=== PATIENT | female | born 1985 | race Caucasian/White ===

== ENCOUNTER 2019-03-03 18:40 | Inpatient (IN) | payer OTHER, SELFPAY ==
[~2019-03-03 18:40] MED LIST: ISOVUE-370 76%-LOCM 1 ML ONE
[2019-03-03] MEDS ORDERED: Adacel (T-DAP) 0.5 ML SYRINGE ONE (18:41)
[2019-03-03] MEDS ORDERED: Fentanyl 100 MCG/2 ML VIAL ONE ×2 (18:41→23:03)
[2019-03-03] MEDS ORDERED: CEFAZOLIN 1 GM VIAL ONE ×2 (18:48→18:49)
[2019-03-03 19:23] LABS: INR-International Normal Ratio 0.8; Prothrombin Time 10.6 SEC (12.0-14.7)
[2019-03-03 19:24] LABS: PTT 17.9 SEC (22.9-36.1)
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
[2019-03-03 19:27] LABS: BHCG - Serum Negative (NEGATIVE); Pregs Control Background? CLEAR/WHITE (CLR/WHITE); Pregs Control Bar Appear? YES (CONTROL BAR)
[2019-03-03 19:32] LABS: ALT (SGPT) 29 U/L (8-55); AST (SGOT) 46 U/L (5-34); Albumin 3.7 g/dL (3.5-5.0); Alkaline Phosphatase 47 U/L (40-150); Anion Gap 12 mmol/L (10-20); BUN (Urea Nitrogen) 11 mg/dL (7.0-18.7); Bilirubin, Total 0.5 mg/dL (0.2-1.2); Calc. Creatinine Clearance 0 mL/min (70-130); Calcium 8.4 mg/dL (7.8-10.44); Carbon Dioxide 22 mmol/L (22-29); Chloride 109 mmol/L (98-107); Estimated GFR-MDRD 82; Globulin 2.4 g/dL (2.4-3.5); Glucose 83 mg/dL (70-105); Potassium 3.3 mmol/L (3.5-5.1); Protein, Total 6.1 g/dL (6.0-8.3); Sodium 140 mmol/L (136-145)
[2019-03-03] MEDS ORDERED: Morphine 4 MG/ML VIAL ONE (19:51)
[2019-03-03] MEDS ORDERED: Ondansetron PF 4 MG/2 ML Vial ONE (19:51)
[2019-03-03 19:56] LABS: #Basophils 0.1 thou/uL (0.0-0.2); #Eosinphils 0.1 thou/uL (0.0-0.7); #Lymphocytes 1.3 thou/uL (1.20-3.40); #Monocytes 0.7 thou/uL (0.11-0.59); #Neutrophils 8.4 thou/uL (1.40-6.50); %Basophils 0.5 % (0.0-1.0); %Eosinophils 0.6 % (0.0-10.0); %Lymphocytes 12.6 % (21.0-51.0); %Monocytes 6.3 % (0.0-10.0); Hemoglobin 11.2 g/dL (12.0-16.0); Mean Corpuscular Hemoglobin 30.4 pg (27.0-31.0); Mean Corpuscular Volume 92.2 fL (78.0-98.0); Mean Platelet Volume 6.7 fL (7.4-10.4); Platelet Count 216 thou/uL (130-400); RBC Distribution Width 11.9 % (11.5-14.5); Red Blood Cell (RBC) Count 3.69 mill/uL (4.20-5.40); White Blood Cell (WBC) Count 10.5 thou/uL (4.8-10.8)
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
--- NOTE | 2019-03-03 21:16 | CT ---
CT CHEST WITH IV CONTRAST: CT ABDOMEN WITH IV CONTRAST: CT PELVIS WITH IV CONTRAST: CORONAL AND SAGITTAL REFORMATIONS OF THE THORACOLUMBAR SPINE: FINDINGS: No evidence of mediastinal hematoma or intimal flap in the aorta is seen to suggest aortic transectio n. No pleural or pericardial effusions are seen. No pneumothoraces are identified. There are patch y infiltrates in the posterior aspect of the left lung base, likely due to pulmonary contusions. The liver, spleen, pancreas, adrenal glands, and kidneys are intact. The gallbladder is intact. No free air or free fluid is seen in the abdomen or pelvis. Uterus is present with an IUD. No fracture or subluxation is seen in the thoracolumbar spine. There are comminuted fractures involv ing the left sacral alae. There are also fractures involving the anterior column of the left acetabu lum and the left inferior pubic ramus. IMPRESSION: 1. Left-sided pulmonary contusions. 2. Pelvic fractures. 3. No CT evidence of solid organ injury. Discussed over the telephone with ER physician, Dr. Marina Ramon, at 8:16 p.m. CODE BELLA POS: [facility]
[2019-03-03] MEDS ORDERED: Lidocaine 1% w/Epinephrine 1:100K 20 ML VIAL ONE (21:24)
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
[2019-03-03] MEDS ORDERED: Ketamine 50 MG/ML (10ML VIAL) ONE (22:17)
[2019-03-03] MEDS ORDERED: Bacitracin 1 PK ONE (22:34)
[2019-03-03] MEDS ORDERED: Dextrose 5% in Water 1,000 ML IV PRN (22:48)
[2019-03-03] MEDS ORDERED: Promethazine HCl 25 MG/ML VIAL IM PRN (22:48)
[2019-03-03] MEDS ORDERED: Morphine 4 MG/ML VIAL SLOW IVP PRN (22:48)
[2019-03-03] MEDS ORDERED: hydrALAZINE 20 MG/ML VIAL SLOW IVP PRN (22:48)
[2019-03-03] MEDS ORDERED: Dextrose 50% Abboject 50 ML SYRINGE SLOW IVP PRN (22:48)
[2019-03-03] MEDS ORDERED: traMADol HCl 50 MG TAB PO PRN ×2 (22:53)
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
[2019-03-03] MEDS ORDERED: Potassium Chloride 20 MEQ in Premix Bag 1 BAG IVPB SCH (23:59)
--- NOTE | 2019-03-04 00:02 | RAD ---
RIGHT HAND THREE VIEWS: HISTORY: Injury. Right hand pain. FINDINGS: No acute fracture or dislocation is identified. POS: [facility]
--- NOTE | 2019-03-04 00:02 | RAD ---
LEFT FOREARM TWO VIEWS: HISTORY: Post reduction, distal radial and ulnar fractures. COMPARISON: Exam done at 8:29 p.m. on the same day. FINDINGS: Interval reduction of the distal radial fracture is seen since the earlier exam. A cast has been jessica christine. The fracture of the ulnar styloid is unchanged. POS: [facility]
[2019-03-04] MEDS ORDERED: Morphine 4 MG/ML VIAL ONE (00:29)
[2019-03-04 00:56] LABS: Lactic Acid 3.2 mmol/L (0.5-2.2)
[2019-03-04 02:11] LABS: Amphetamine Not Detected (NotDetected); Benzodiazepine Screen Not Detected (NotDetected); Cocaine Metabolite Screen Detected (NotDetected); Medtox Reader # READER 4; Methadone Not Detected (NotDetected); Methamphetamine Detected (NotDetected); Opiate Screen Detected (NotDetected); Phencyclidine (PCP) Not Detected (NotDetected); THC/Cannabinoid Screen Not Detected (NotDetected); Tricyclic Screen Not Detected (NotDetected)
[2019-03-04 02:12] LABS: Barbiturates Screen Not Detected (NotDetected); Medtox Control Line Valid? VALID (VALID); Oxycodone Screen Not Detected (NotDetected)
[2019-03-04 02:42] VITALS: BMI 27.8
[2019-03-04] MEDS: Morphine 4 MG/ML VIAL SLOW IVP PRN ×2 (02:48→12:12)
[2019-03-04] MEDS: Acetaminophen 1,000 MG in Premix Bag 1 BAG IVPB SCH ×4 (02:48→17:52)
[2019-03-04] MEDS: Sodium Chloride 0.9% 1,000 ML IV SCH ×3 (02:50→21:04)
[2019-03-04] MEDS: Ibuprofen 800 MG TAB PO SCH ×3 (02:57→15:51)
[2019-03-04 05:32] LABS: #Lymphocytes 1.4 thou/uL (1.20-3.40); #Monocytes 1.1 thou/uL (0.11-0.59); #Neutrophils 7.4 thou/uL (1.40-6.50); %Basophils 0.1 % (0.0-1.0); %Eosinophils 0.2 % (0.0-10.0); %Lymphocytes 13.9 % (21.0-51.0); %Monocytes 10.8 % (0.0-10.0); %Neutrophils 75.1 % (42.0-75.0); Hemoglobin 10.7 g/dL (12.0-16.0); Mean Corpuscular HGB CONC 33.6 g/dL (32.0-36.0); Mean Corpuscular Hemoglobin 31.3 pg (27.0-31.0); Mean Platelet Volume 6.8 fL (7.4-10.4); Platelet Count 231 thou/uL (130-400); RBC Distribution Width 11.8 % (11.5-14.5); Red Blood Cell (RBC) Count 3.43 mill/uL (4.20-5.40); White Blood Cell (WBC) Count 9.8 thou/uL (4.8-10.8)
[2019-03-04 05:48] LABS: Anion Gap 12 mmol/L (10-20); BUN (Urea Nitrogen) 11 mg/dL (7.0-18.7); Calc. Creatinine Clearance 124 mL/min (70-130); Calcium 8.2 mg/dL (7.8-10.44); Carbon Dioxide 22 mmol/L (22-29); Chloride 107 mmol/L (98-107); Estimated GFR-MDRD 78; Glucose 131 mg/dL (70-105); Magnesium 1.7 mg/dL (1.6-2.6); Phosphorus 3.4 mg/dL (2.3-4.7); Potassium 4.3 mmol/L (3.5-5.1); Sodium 137 mmol/L (136-145)
[2019-03-04] MEDS ORDERED: CEFAZOLIN 2 GM in Premix Bag 1 BAG IVPB SCH (08:30)
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
[2019-03-04] MEDS: Famotidine 20 MG TAB PO SCH ×2 (09:12→21:04)
[2019-03-04] MEDS: Polyethylene Glycol 3350 17 GM Packet PO SCH (09:13)
[2019-03-04] MEDS: Senokot S 8.6-50 MG TAB PO SCH ×2 (09:13→21:04)
[2019-03-04] MEDS: Silver Sulfadiazine 1% Cream 50 GM TUBE TP SCH ×2 (09:16→21:05)
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
--- NOTE | 2019-03-04 10:59 | RAD ---
RADIOGRAPH CHEST 1 VIEW: DATE: 03/04/2019 HISTORY: Central line placement. FINDINGS: The visualized lung reyes are clear. The cardiomediastinal silhouette and hilar shadows are normal. The lateral costophrenic angles are sharp. The osseous structures appear normal. There is no pneumothorax. Left subclavian central line with distal tip overlying SVC/right atrial junction. IMPRESSION: 1. Left subclavian central vascular catheter without pneumothorax. 2. Otherwise normal.
[2019-03-04] MEDS: Ondansetron PF 4 MG/2 ML Vial IVP PRN (12:13)
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
[2019-03-04] MEDS ORDERED: Fentanyl 100 MCG/2 ML VIAL ONE ×4 (12:55→16:31)
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
[2019-03-04] MEDS ORDERED: Lidocaine 1% (PF) 30 ML VIAL ONE (13:00)
[2019-03-04] MEDS ORDERED: Midazolam HCl 2 mg/2 ml Vial ONE (13:00)
[2019-03-04] MEDS ORDERED: Bupivacaine HCl 0.5%/Epinephrine 1:200,000/PF 30 ml Vial ONE (13:55)
[2019-03-04] MEDS ORDERED: Rocuronium Bromide 10 MG/ML (10ML VIAL) ONE (13:56)
[2019-03-04] MEDS ORDERED: Glycopyrrolate 0.2 MG/ML 5 ML SYRINGE ONE (13:56)
[2019-03-04] MEDS ORDERED: PROPOFOL 200 MG/20 ML VIAL ONE (13:56)
[2019-03-04] MEDS ORDERED: Dexamethasone 20 MG/5 ML VIAL ONE (13:56)
[2019-03-04] MEDS ORDERED: Ketorolac Tromethamine 30 MG/ML VIAL ONE (13:56)
[2019-03-04] MEDS ORDERED: Ondansetron PF 4 MG/2 ML Vial ONE (13:56)
[2019-03-04] MEDS ORDERED: Ondansetron HCl/PF 4 MG/2 ML Vial IVP PRN (16:47)
[2019-03-04] MEDS ORDERED: Promethazine HCl 25 MG/ML VIAL SLOW IVP PRN (16:47)
[2019-03-04] MEDS ORDERED: diphenhydrAMINE 50 MG/ML VIAL IVP PRN (16:47)
[2019-03-04] MEDS ORDERED: Naloxone HCl 0.4 mg/ml Vial IV PRN (16:47)
[2019-03-04] MEDS ORDERED: Zolpidem Tartrate 5 MG TAB PO PRN (16:47)
[2019-03-04] MEDS ORDERED: diphenhydrAMINE 50 MG/ML VIAL IM PRN (16:47)
[2019-03-04] MEDS ORDERED: fentaNYL Citrate/PF 2,000 MCG in Sodium Chloride 0.9% 60 ML IV PRN (16:47)
[2019-03-04] MEDS ORDERED: diphenhydrAMINE 25 MG CAP PO PRN (16:47)
[2019-03-04] MEDS ORDERED: Promethazine HCl 25 MG/ML VIAL IM PRN ×2 (16:47)
[2019-03-04] MEDS ORDERED: Ondansetron PF 4 MG/2 ML Vial IVP PRN (16:47)
[2019-03-04] MEDS ORDERED: Morphine 4 MG/ML VIAL SLOW IVP PRN (16:55)
[2019-03-04] MEDS ORDERED: Communication Order-Pharmacy FS SCH (17:00)
--- NOTE | 2019-03-04 18:20 | RAD ---
LEFT WRIST THREE VIEWS: 03/04/19 HISTORY: Distal radial and ulnar fractures. FINDINGS/IMPRESSION: Spot fluoroscopic images of the wrist demonstrate interval reduction and internal fixation of the dis cinthya radial fractures since the previous day's exam. Ulnar styloid fracture is unchanged. POS: [facility]
[2019-03-04] MEDS: Cyclobenzaprine 10 MG TAB PO PRN (21:04)
[2019-03-04] MEDS: CEFAZOLIN 2 GM in Premix Bag 1 BAG IVPB SCH (21:05)
[2019-03-04] MEDS: traMADol HCl 50 MG TAB PO PRN (22:10)
[2019-03-05] MEDS: Ibuprofen 800 MG TAB PO SCH ×3 (00:28→13:40)
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
[2019-03-05] MEDS: Sodium Chloride 0.9% 1,000 ML IV SCH ×2 (04:24→17:41)
[2019-03-05] MEDS: CEFAZOLIN 2 GM in Premix Bag 1 BAG IVPB SCH ×2 (06:20→13:39)
[2019-03-05] MEDS: traMADol HCl 50 MG TAB PO PRN ×2 (06:21→10:27)
[2019-03-05] MEDS: Senokot S 8.6-50 MG TAB PO SCH ×2 (09:12→20:33)
[2019-03-05] MEDS: Polyethylene Glycol 3350 17 GM Packet PO SCH (09:12)
[2019-03-05] MEDS: Famotidine 20 MG TAB PO SCH ×2 (09:12→20:32)
[2019-03-05] MEDS: Silver Sulfadiazine 1% Cream 50 GM TUBE TP SCH ×2 (09:13→20:34)
[2019-03-05] MEDS: Cyclobenzaprine 10 MG TAB PO PRN (10:27)
[2019-03-05] MEDS ORDERED: Morphine 2 MG/ML SYRINGE SLOW IVP SCH (12:30)
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
[2019-03-05] MEDS: Acetaminophen 500 MG TAB PO SCH ×2 (13:38→18:02)
[2019-03-05] MEDS: traMADol HCl 50 MG TAB PO SCH ×2 (13:39→20:31)
[2019-03-05] MEDS: Gabapentin 300 MG CAP PO SCH (20:33)
[2019-03-06] MEDS: Ibuprofen 800 MG TAB PO SCH ×3 (00:34→14:29)
[2019-03-06] MEDS: traMADol HCl 50 MG TAB PO SCH ×5 (00:34→20:34)
[2019-03-06] MEDS: Acetaminophen 500 MG TAB PO SCH ×4 (00:34→18:07)
[2019-03-06] MEDS: Sodium Chloride 0.9% 1,000 ML IV SCH (00:34)
[2019-03-06 03:35] LABS: #Eosinphils 0.1 thou/uL (0.0-0.7); #Lymphocytes 2.2 thou/uL (1.20-3.40); #Monocytes 0.5 thou/uL (0.11-0.59); #Neutrophils 4.1 thou/uL (1.40-6.50); %Basophils 0.6 % (0.0-1.0); %Eosinophils 0.9 % (0.0-10.0); %Lymphocytes 32.1 % (21.0-51.0); %Monocytes 6.6 % (0.0-10.0); %Neutrophils 59.8 % (42.0-75.0); Hemoglobin 8.3 g/dL (12.0-16.0); Mean Corpuscular HGB CONC 32.6 g/dL (32.0-36.0); Mean Corpuscular Hemoglobin 30.7 pg (27.0-31.0); Mean Corpuscular Volume 94.1 fL (78.0-98.0); Mean Platelet Volume 6.7 fL (7.4-10.4); Platelet Count 177 thou/uL (130-400); RBC Distribution Width 11.9 % (11.5-14.5); White Blood Cell (WBC) Count 6.9 thou/uL (4.8-10.8)
[2019-03-06 04:02] LABS: Anion Gap 8 mmol/L (10-20); BUN (Urea Nitrogen) 10 mg/dL (7.0-18.7); Calc. Creatinine Clearance 169 mL/min (70-130); Calcium 7.8 mg/dL (7.8-10.44); Carbon Dioxide 27 mmol/L (22-29); Chloride 108 mmol/L (98-107); Estimated GFR-MDRD Greater than 90; Glucose 91 mg/dL (70-105); Potassium 3.5 mmol/L (3.5-5.1); Sodium 139 mmol/L (136-145)
[2019-03-06] MEDS: Cyclobenzaprine 10 MG TAB PO PRN ×2 (06:34→20:38)
[2019-03-06] MEDS: Gabapentin 300 MG CAP PO SCH ×2 (09:26→20:35)
[2019-03-06] MEDS: Famotidine 20 MG TAB PO SCH ×2 (09:26→20:35)
[2019-03-06] MEDS: Polyethylene Glycol 3350 17 GM Packet PO SCH (09:26)
[2019-03-06] MEDS: Senokot S 8.6-50 MG TAB PO SCH ×2 (09:26→20:35)
[2019-03-06] MEDS: Enoxaparin Sodium 40 MG/0.4 ML SYRINGE SC SCH (09:26)
[2019-03-06] MEDS: Silver Sulfadiazine 1% Cream 50 GM TUBE TP SCH ×2 (09:27→20:39)
[2019-03-06] MEDS ORDERED: Ferrous Sulfate 325 MG TAB PO SCH (10:00)
[2019-03-06] MEDS: Ascorbic Acid 500 mg Chewable Tablet PO SCH ×2 (10:08→20:35)
[2019-03-06] MEDS ORDERED: Morphine 2 MG/ML SYRINGE SLOW IVP SCH (11:00)
[2019-03-06] MEDS: Ferrous Sulfate 325 MG TAB PO SCH (18:07)
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
[2019-03-06] MEDS: Tetrahydrozoline 0.05% OPTH 15 ML BOT R EYE PRN (20:38)
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
[2019-03-07] MEDS: Acetaminophen 500 MG TAB PO SCH ×4 (00:51→18:12)
[2019-03-07] MEDS: traMADol HCl 50 MG TAB PO SCH ×4 (00:52→20:55)
[2019-03-07] MEDS: Ibuprofen 800 MG TAB PO SCH ×3 (00:54→16:17)
[2019-03-07] MEDS: Tetrahydrozoline 0.05% OPTH 15 ML BOT R EYE PRN (07:48)
[2019-03-07] MEDS: Gabapentin 300 MG CAP PO SCH ×2 (08:17→20:56)
[2019-03-07] MEDS: Famotidine 20 MG TAB PO SCH (08:17)
[2019-03-07] MEDS: Senokot S 8.6-50 MG TAB PO SCH ×2 (08:17→21:00)
[2019-03-07] MEDS: Ascorbic Acid 500 mg Chewable Tablet PO SCH ×2 (08:17→20:56)
[2019-03-07] MEDS: Polyethylene Glycol 3350 17 GM Packet PO SCH (08:18)
[2019-03-07] MEDS: Enoxaparin Sodium 40 MG/0.4 ML SYRINGE SC SCH (08:18)
[2019-03-07] MEDS: Silver Sulfadiazine 1% Cream 50 GM TUBE TP SCH ×2 (08:19→21:00)
[2019-03-07] MEDS: Ferrous Sulfate 325 MG TAB PO SCH ×2 (08:48→17:22)
[2019-03-07] MEDS: Artificial Tears 18 DROP/0.9 ML EA EYE SCH ×3 (10:49→21:04)
[2019-03-07] MEDS ORDERED: Morphine 2 MG/ML SYRINGE SLOW IVP PRN (15:39)
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
[2019-03-07] MEDS ORDERED: Morphine 4 MG/ML VIAL ONE (15:48)
[2019-03-08] MEDS: Ibuprofen 800 MG TAB PO SCH ×3 (00:04→16:11)
[2019-03-08] MEDS: Acetaminophen 500 MG TAB PO SCH ×2 (00:05→05:58)
[2019-03-08] MEDS: Artificial Tears 18 DROP/0.9 ML EA EYE SCH ×3 (00:12→09:57)
[2019-03-08] MEDS: traMADol HCl 50 MG TAB PO SCH ×4 (02:49→19:53)
[2019-03-08 06:16] LABS: #Eosinphils 0.2 thou/uL (0.0-0.7); #Lymphocytes 1.5 thou/uL (1.20-3.40); #Monocytes 0.5 thou/uL (0.11-0.59); #Neutrophils 5.4 thou/uL (1.40-6.50); %Basophils 0.3 % (0.0-1.0); %Eosinophils 2.5 % (0.0-10.0); %Lymphocytes 19.3 % (21.0-51.0); %Monocytes 7.1 % (0.0-10.0); %Neutrophils 70.8 % (42.0-75.0); Hemoglobin 8.7 g/dL (12.0-16.0); Mean Corpuscular HGB CONC 31.8 g/dL (32.0-36.0); Mean Corpuscular Hemoglobin 29.6 pg (27.0-31.0); Mean Corpuscular Volume 93.1 fL (78.0-98.0); Mean Platelet Volume 6.1 fL (7.4-10.4); Platelet Count 271 thou/uL (130-400); RBC Distribution Width 11.8 % (11.5-14.5); Red Blood Cell (RBC) Count 2.95 mill/uL (4.20-5.40); White Blood Cell (WBC) Count 7.7 thou/uL (4.8-10.8)
[2019-03-08 06:35] LABS: Anion Gap 10 mmol/L (10-20); BUN (Urea Nitrogen) 11 mg/dL (7.0-18.7); CK (CPK) 209 U/L (29-168); Calc. Creatinine Clearance 177 mL/min (70-130); Calcium 8.3 mg/dL (7.8-10.44); Carbon Dioxide 28 mmol/L (22-29); Chloride 104 mmol/L (98-107); Estimated GFR-MDRD Greater than 90; Glucose 84 mg/dL (70-105); Magnesium 1.9 mg/dL (1.6-2.6); Phosphorus 4.1 mg/dL (2.3-4.7); Potassium 3.8 mmol/L (3.5-5.1); Sodium 138 mmol/L (136-145)
[2019-03-08] MEDS ORDERED: Lidocaine 4% Topical Sol 50 ML BOT TOP PRN (08:00)
[2019-03-08] MEDS: Gabapentin 300 MG CAP PO SCH ×2 (08:38→19:54)
[2019-03-08] MEDS: Ascorbic Acid 500 mg Chewable Tablet PO SCH ×2 (08:39→19:54)
[2019-03-08] MEDS: Enoxaparin Sodium 40 MG/0.4 ML SYRINGE SC SCH (08:40)
[2019-03-08] MEDS: Ferrous Sulfate 325 MG TAB PO SCH ×2 (08:40→17:16)
[2019-03-08] MEDS: Tetrahydrozoline 0.05% OPTH 15 ML BOT R EYE PRN ×2 (08:41→20:11)
[2019-03-08] MEDS: Silver Sulfadiazine 1% Cream 50 GM TUBE TP SCH ×2 (08:44→19:54)
[2019-03-08] MEDS: Polyethylene Glycol 3350 17 GM Packet PO SCH (08:46)
[2019-03-08] MEDS: Senokot S 8.6-50 MG TAB PO SCH ×2 (08:46→19:54)
[2019-03-08] MEDS ORDERED: HYDROcodone/Acetaminophen 5/325 mg Tablet PO SCH (10:00)
[2019-03-08] MEDS ORDERED: HYDROcodone/Acetaminophen 10/325 mg Tablet PO SCH (10:15)
[2019-03-08] MEDS: Acetaminophen 325 MG TAB PO SCH ×3 (10:37→21:37)
[2019-03-08] MEDS: HYDROcodone/Acetaminophen 10/325 mg Tablet PO SCH ×2 (10:37→17:15)
[2019-03-08] MEDS: HYDROcodone/Acetaminophen 10/325 mg Tablet PO PRN (12:49)
[2019-03-08] MEDS: Artificial Tear Sol 15 ML BOT EA EYE SCH ×3 (14:42→20:13)
[2019-03-09] MEDS: Ibuprofen 800 MG TAB PO SCH ×3 (00:48→16:21)
[2019-03-09] MEDS: HYDROcodone/Acetaminophen 10/325 mg Tablet PO SCH ×4 (00:49→18:01)
[2019-03-09] MEDS: Artificial Tear Sol 15 ML BOT EA EYE SCH ×6 (00:49→21:19)
[2019-03-09] MEDS: traMADol HCl 50 MG TAB PO SCH ×4 (02:43→21:17)
[2019-03-09] MEDS: Acetaminophen 325 MG TAB PO SCH ×4 (04:36→21:43)
[2019-03-09] MEDS: Ferrous Sulfate 325 MG TAB PO SCH ×2 (08:36→16:28)
[2019-03-09] MEDS: Ascorbic Acid 500 mg Chewable Tablet PO SCH ×2 (08:37→21:18)
[2019-03-09] MEDS: Gabapentin 300 MG CAP PO SCH ×2 (08:37→21:19)
[2019-03-09] MEDS: Enoxaparin Sodium 40 MG/0.4 ML SYRINGE SC SCH (08:38)
[2019-03-09] MEDS: Polyethylene Glycol 3350 17 GM Packet PO SCH (08:38)
[2019-03-09] MEDS: Silver Sulfadiazine 1% Cream 50 GM TUBE TP SCH ×2 (08:40→21:31)
[2019-03-09] MEDS: Senokot S 8.6-50 MG TAB PO SCH ×2 (08:40→21:19)
[2019-03-10] MEDS: HYDROcodone/Acetaminophen 10/325 mg Tablet PO SCH ×2 (00:10→06:19)
[2019-03-10] MEDS: Ibuprofen 800 MG TAB PO SCH ×4 (00:10→22:58)
[2019-03-10] MEDS: Artificial Tear Sol 15 ML BOT EA EYE SCH ×6 (00:12→20:20)
[2019-03-10] MEDS: Acetaminophen 325 MG TAB PO SCH ×5 (03:13→22:58)
[2019-03-10] MEDS: traMADol HCl 50 MG TAB PO SCH ×4 (03:14→20:21)
[2019-03-10] MEDS: Enoxaparin Sodium 40 MG/0.4 ML SYRINGE SC SCH (08:20)
[2019-03-10] MEDS: Senokot S 8.6-50 MG TAB PO SCH ×2 (08:21→20:22)
[2019-03-10] MEDS: Gabapentin 300 MG CAP PO SCH ×3 (08:21→20:21)
[2019-03-10] MEDS: Ascorbic Acid 500 mg Chewable Tablet PO SCH ×2 (08:21→20:21)
[2019-03-10] MEDS: Polyethylene Glycol 3350 17 GM Packet PO SCH (08:21)
[2019-03-10] MEDS: Ferrous Sulfate 325 MG TAB PO SCH ×2 (08:21→16:47)
[2019-03-10] MEDS: Silver Sulfadiazine 1% Cream 50 GM TUBE TP SCH ×2 (08:23→20:22)
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
[2019-03-10] MEDS ORDERED: Gabapentin 300 MG CAP PO SCH (10:15)
[2019-03-10] MEDS: HYDROcodone/Acetaminophen 10/325 mg Tablet PO PRN (10:29)
[2019-03-10] MEDS: Ondansetron PF 4 MG/2 ML Vial IVP PRN (10:29)
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
[2019-03-10] MEDS: Artificial Tears 18 DROP/0.9 ML EA EYE SCH (15:45)
[2019-03-10] MEDS: Tetrahydrozoline 0.05% OPTH 15 ML BOT R EYE PRN (20:19)
[2019-03-10] MEDS: Enoxaparin Sodium 30 MG/0.3 ML SYRINGE SC SCH (20:22)
[2019-03-11] MEDS: traMADol HCl 50 MG TAB PO SCH ×4 (01:26→19:58)
[2019-03-11] MEDS: Artificial Tear Sol 15 ML BOT EA EYE SCH ×6 (01:27→19:58)
[2019-03-11] MEDS: Acetaminophen 325 MG TAB PO SCH ×4 (04:17→22:57)
[2019-03-11] MEDS: Tetrahydrozoline 0.05% OPTH 15 ML BOT R EYE PRN (04:17)
[2019-03-11] MEDS: Ferrous Sulfate 325 MG TAB PO SCH ×2 (08:47→16:52)
[2019-03-11] MEDS: Ibuprofen 800 MG TAB PO SCH ×3 (08:47→22:57)
[2019-03-11] MEDS: Enoxaparin Sodium 30 MG/0.3 ML SYRINGE SC SCH ×2 (08:47→19:57)
[2019-03-11] MEDS: Ascorbic Acid 500 mg Chewable Tablet PO SCH ×2 (08:47→19:57)
[2019-03-11] MEDS: Senokot S 8.6-50 MG TAB PO SCH ×2 (08:47→19:57)
[2019-03-11] MEDS: Silver Sulfadiazine 1% Cream 50 GM TUBE TP SCH ×2 (08:48→19:59)
[2019-03-11] MEDS: Gabapentin 300 MG CAP PO SCH ×3 (08:48→19:57)
[2019-03-11] MEDS: Polyethylene Glycol 3350 17 GM Packet PO SCH (08:57)
[2019-03-11] MEDS: HYDROcodone/Acetaminophen 10/325 mg Tablet PO PRN (10:23)
[2019-03-11] MEDS: Cyclobenzaprine 10 MG TAB PO PRN ×2 (11:22→22:59)
[2019-03-11] MEDS: traMADol HCl 50 MG TAB PO PRN (11:23)
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
[2019-03-12] MEDS: traMADol HCl 50 MG TAB PO SCH ×4 (01:29→20:04)
[2019-03-12] MEDS: Artificial Tear Sol 15 ML BOT EA EYE SCH ×6 (01:29→20:06)
[2019-03-12] MEDS: Acetaminophen 325 MG TAB PO SCH ×4 (05:09→23:03)
[2019-03-12] MEDS: Enoxaparin Sodium 30 MG/0.3 ML SYRINGE SC SCH ×2 (08:09→20:05)
[2019-03-12] MEDS: Gabapentin 300 MG CAP PO SCH ×3 (08:11→20:05)
[2019-03-12] MEDS: Ferrous Sulfate 325 MG TAB PO SCH ×2 (08:11→16:27)
[2019-03-12] MEDS: Ascorbic Acid 500 mg Chewable Tablet PO SCH ×2 (08:11→20:04)
[2019-03-12] MEDS: Ibuprofen 800 MG TAB PO SCH ×3 (08:11→23:03)
[2019-03-12] MEDS: Senokot S 8.6-50 MG TAB PO SCH ×2 (08:11→20:05)
[2019-03-12] MEDS: Polyethylene Glycol 3350 17 GM Packet PO SCH (08:12)
[2019-03-12] MEDS: Silver Sulfadiazine 1% Cream 50 GM TUBE TP SCH ×2 (08:13→20:06)
[2019-03-12] MEDS: HYDROcodone/Acetaminophen 10/325 mg Tablet PO PRN (09:31)
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
[2019-03-13] MEDS: Artificial Tear Sol 15 ML BOT EA EYE SCH ×7 (01:38→23:58)
[2019-03-13] MEDS: traMADol HCl 50 MG TAB PO SCH ×4 (01:38→21:19)
[2019-03-13] MEDS: Acetaminophen 325 MG TAB PO SCH ×4 (05:06→21:18)
--- NOTE | 2019-03-13 08:10 | RAD ---
XR Ankle Rt 3 View STANDARD HISTORY: Injury, right ankle pain FINDINGS: Comparison is made with exam of 03/03/2019. No fracture or dislocation is identified. The ankle mortise is maintained. If there is concern for ligamentous or tendinous injury, MRI would be helpful.
[2019-03-13] MEDS: Polyethylene Glycol 3350 17 GM Packet PO SCH (09:45)
[2019-03-13] MEDS: Ferrous Sulfate 325 MG TAB PO SCH ×2 (09:48→19:49)
[2019-03-13] MEDS: Ascorbic Acid 500 mg Chewable Tablet PO SCH ×2 (09:48→21:20)
[2019-03-13] MEDS: Gabapentin 300 MG CAP PO SCH ×3 (09:48→21:17)
[2019-03-13] MEDS: Senokot S 8.6-50 MG TAB PO SCH ×2 (09:48→21:18)
[2019-03-13] MEDS: Ibuprofen 800 MG TAB PO SCH ×3 (09:49→23:54)
[2019-03-13] MEDS: Enoxaparin Sodium 30 MG/0.3 ML SYRINGE SC SCH ×2 (09:49→21:21)
[2019-03-13] MEDS: Silver Sulfadiazine 1% Cream 50 GM TUBE TP SCH ×2 (09:56→21:27)
[2019-03-13] MEDS: HYDROcodone/Acetaminophen 10/325 mg Tablet PO PRN (11:33)
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
[2019-03-14] MEDS: traMADol HCl 50 MG TAB PO SCH ×4 (02:20→20:25)
[2019-03-14] MEDS: Acetaminophen 325 MG TAB PO SCH ×4 (05:01→21:55)
[2019-03-14] MEDS: Artificial Tear Sol 15 ML BOT EA EYE SCH ×5 (06:30→20:27)
[2019-03-14] MEDS: Ibuprofen 800 MG TAB PO SCH ×2 (09:06→15:31)
[2019-03-14] MEDS: Senokot S 8.6-50 MG TAB PO SCH ×2 (09:06→20:24)
[2019-03-14] MEDS: Ascorbic Acid 500 mg Chewable Tablet PO SCH ×2 (09:07→20:27)
[2019-03-14] MEDS: Gabapentin 300 MG CAP PO SCH ×3 (09:07→20:25)
[2019-03-14] MEDS: Polyethylene Glycol 3350 17 GM Packet PO SCH (09:07)
[2019-03-14] MEDS: Ferrous Sulfate 325 MG TAB PO SCH ×2 (09:07→18:01)
[2019-03-14] MEDS: Enoxaparin Sodium 30 MG/0.3 ML SYRINGE SC SCH ×2 (09:08→20:27)
[2019-03-14] MEDS: Silver Sulfadiazine 1% Cream 50 GM TUBE TP SCH ×2 (09:12→20:27)
[2019-03-14] MEDS: HYDROcodone/Acetaminophen 10/325 mg Tablet PO PRN (15:31)
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
[2019-03-15] MEDS: Ibuprofen 800 MG TAB PO SCH ×4 (00:10→23:36)
[2019-03-15] MEDS: Artificial Tear Sol 15 ML BOT EA EYE SCH ×6 (00:12→23:19)
[2019-03-15] MEDS: traMADol HCl 50 MG TAB PO SCH ×3 (02:31→15:10)
[2019-03-15] MEDS: Acetaminophen 325 MG TAB PO SCH ×4 (04:48→21:50)
[2019-03-15] MEDS: Gabapentin 300 MG CAP PO SCH ×3 (08:53→21:50)
[2019-03-15] MEDS: Senokot S 8.6-50 MG TAB PO SCH ×2 (08:53→21:50)
[2019-03-15] MEDS: Ascorbic Acid 500 mg Chewable Tablet PO SCH ×2 (08:53→21:50)
[2019-03-15] MEDS: Ferrous Sulfate 325 MG TAB PO SCH ×2 (08:53→17:15)
[2019-03-15] MEDS: Polyethylene Glycol 3350 17 GM Packet PO SCH (09:27)
[2019-03-15] MEDS: Enoxaparin Sodium 30 MG/0.3 ML SYRINGE SC SCH ×2 (09:29→21:51)
[2019-03-15] MEDS: Silver Sulfadiazine 1% Cream 50 GM TUBE TP SCH ×2 (09:44→23:20)
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
[2019-03-15] MEDS: traMADol HCl 50 MG TAB PO PRN (19:56)
[2019-03-15] MEDS: Cyclobenzaprine 10 MG TAB PO PRN (23:36)
[2019-03-16] MEDS: Artificial Tear Sol 15 ML BOT EA EYE SCH ×6 (00:35→23:38)
[2019-03-16] MEDS: traMADol HCl 50 MG TAB PO PRN ×3 (05:14→23:33)
[2019-03-16] MEDS: Acetaminophen 325 MG TAB PO SCH ×4 (05:14→22:22)
[2019-03-16] MEDS: Senokot S 8.6-50 MG TAB PO SCH ×2 (09:18→22:19)
[2019-03-16] MEDS: Ferrous Sulfate 325 MG TAB PO SCH ×2 (09:19→17:22)
[2019-03-16] MEDS: Ascorbic Acid 500 mg Chewable Tablet PO SCH ×2 (09:19→22:19)
[2019-03-16] MEDS: Ibuprofen 800 MG TAB PO SCH ×3 (09:20→23:33)
[2019-03-16] MEDS: Gabapentin 300 MG CAP PO SCH ×3 (09:20→22:19)
[2019-03-16] MEDS: Enoxaparin Sodium 30 MG/0.3 ML SYRINGE SC SCH ×2 (09:20→22:19)
[2019-03-16] MEDS: Polyethylene Glycol 3350 17 GM Packet PO SCH (10:54)
[2019-03-16] MEDS: Silver Sulfadiazine 1% Cream 50 GM TUBE TP SCH ×2 (13:45→23:38)
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
[2019-03-16] MEDS: Cyclobenzaprine 10 MG TAB PO PRN (22:18)
[2019-03-17] MEDS: Artificial Tear Sol 15 ML BOT EA EYE SCH ×6 (03:32→22:00)
[2019-03-17] MEDS: Acetaminophen 325 MG TAB PO SCH ×4 (04:33→22:07)
[2019-03-17] MEDS: traMADol HCl 50 MG TAB PO PRN (06:10)
[2019-03-17 06:11] LABS: #Basophils 0.1 thou/uL (0.0-0.2); #Eosinphils 0.1 thou/uL (0.0-0.7); #Lymphocytes 2.6 thou/uL (1.20-3.40); #Monocytes 0.5 thou/uL (0.11-0.59); #Neutrophils 3.6 thou/uL (1.40-6.50); %Basophils 0.8 % (0.0-1.0); %Eosinophils 0.9 % (0.0-10.0); %Lymphocytes 38.4 % (21.0-51.0); %Monocytes 7.5 % (0.0-10.0); %Neutrophils 52.4 % (42.0-75.0); Hemoglobin 9.8 g/dL (12.0-16.0); Mean Corpuscular HGB CONC 31.7 g/dL (32.0-36.0); Mean Corpuscular Hemoglobin 29.6 pg (27.0-31.0); Mean Corpuscular Volume 93.4 fL (78.0-98.0); Mean Platelet Volume 5.9 fL (7.4-10.4); Platelet Count 374 thou/uL (130-400); RBC Distribution Width 12.3 % (11.5-14.5); Red Blood Cell (RBC) Count 3.31 mill/uL (4.20-5.40); White Blood Cell (WBC) Count 6.9 thou/uL (4.8-10.8)
[2019-03-17] MEDS: Cyclobenzaprine 10 MG TAB PO PRN ×2 (06:11→22:24)
[2019-03-17 06:29] LABS: Anion Gap 11 mmol/L (10-20); BUN (Urea Nitrogen) 24 mg/dL (7.0-18.7); Calc. Creatinine Clearance 147 mL/min (70-130); Calcium 9.1 mg/dL (7.8-10.44); Carbon Dioxide 27 mmol/L (22-29); Chloride 103 mmol/L (98-107); Estimated GFR-MDRD Greater than 90; Glucose 83 mg/dL (70-105); Magnesium 2.1 mg/dL (1.6-2.6); Phosphorus 4.8 mg/dL (2.3-4.7); Potassium 3.6 mmol/L (3.5-5.1); Sodium 137 mmol/L (136-145)
[2019-03-17] MEDS: Ascorbic Acid 500 mg Chewable Tablet PO SCH ×2 (08:38→22:00)
[2019-03-17] MEDS: Ibuprofen 800 MG TAB PO SCH ×2 (08:38→15:33)
[2019-03-17] MEDS: Gabapentin 300 MG CAP PO SCH ×3 (08:38→22:00)
[2019-03-17] MEDS: Senokot S 8.6-50 MG TAB PO SCH ×3 (08:38→22:00)
[2019-03-17] MEDS: Ferrous Sulfate 325 MG TAB PO SCH ×2 (08:38→17:30)
[2019-03-17] MEDS: Enoxaparin Sodium 30 MG/0.3 ML SYRINGE SC SCH ×2 (08:39→22:00)
[2019-03-17] MEDS: Polyethylene Glycol 3350 17 GM Packet PO SCH ×2 (08:39→11:40)
[2019-03-17] MEDS: Silver Sulfadiazine 1% Cream 50 GM TUBE TP SCH ×2 (08:40→22:00)
[2019-03-17] MEDS: HYDROcodone/Acetaminophen 10/325 mg Tablet PO PRN ×2 (10:23→22:25)
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
[2019-03-18] MEDS: Artificial Tear Sol 15 ML BOT EA EYE SCH ×6 (00:49→22:00)
[2019-03-18] MEDS: Ibuprofen 800 MG TAB PO SCH ×3 (00:49→15:36)
[2019-03-18] MEDS: Acetaminophen 325 MG TAB PO SCH (04:57)
[2019-03-18] MEDS: Enoxaparin Sodium 30 MG/0.3 ML SYRINGE SC SCH ×2 (08:33→22:00)
[2019-03-18] MEDS: Ascorbic Acid 500 mg Chewable Tablet PO SCH ×2 (08:34→22:00)
[2019-03-18] MEDS: Senokot S 8.6-50 MG TAB PO SCH ×2 (08:34→22:00)
[2019-03-18] MEDS: Ferrous Sulfate 325 MG TAB PO SCH ×2 (08:35→17:21)
[2019-03-18] MEDS: Gabapentin 300 MG CAP PO SCH ×3 (08:35→22:00)
[2019-03-18] MEDS: Polyethylene Glycol 3350 17 GM Packet PO SCH (08:36)
[2019-03-18] MEDS: Silver Sulfadiazine 1% Cream 50 GM TUBE TP SCH ×2 (08:36→22:00)
[2019-03-18] MEDS: Acetaminophen 500 MG TAB PO SCH ×4 (08:41→22:00)
[2019-03-18] MEDS: traMADol HCl 50 MG TAB PO SCH ×2 (12:16→17:21)
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
[2019-03-19] MEDS: traMADol HCl 50 MG TAB PO SCH ×5 (00:55→20:37)
[2019-03-19] MEDS: Ibuprofen 800 MG TAB PO SCH ×4 (00:55→23:55)
[2019-03-19] MEDS: Artificial Tear Sol 15 ML BOT EA EYE SCH ×6 (01:11→20:38)
[2019-03-19] MEDS: Ferrous Sulfate 325 MG TAB PO SCH ×2 (08:55→19:29)
[2019-03-19] MEDS: Acetaminophen 500 MG TAB PO SCH ×4 (08:56→20:35)
[2019-03-19] MEDS: Gabapentin 300 MG CAP PO SCH ×3 (08:56→20:36)
[2019-03-19] MEDS: Ascorbic Acid 500 mg Chewable Tablet PO SCH ×2 (08:56→20:35)
[2019-03-19] MEDS: Polyethylene Glycol 3350 17 GM Packet PO SCH (08:58)
--- NOTE | 2019-03-19 08:58 | PRG ---
DATE OF SERVICE: 03/19/2019 SUBJECTIVE: The patient is currently on the surgical floor. She has been here for an extended stay, due to lack of insurance unable to place her. She has been slowly progressing with physical and occupational therapy. She is by report and tonight on my examination found in the same hospital bed with her boyfriend, so her pain is controlled. She reports tolerating a diet, and her bowel function has returned. PHYSICAL EXAMINATION: Vital signs are stable. Afebrile. Debbie Coma Scale of 15. Appears to be comfortable and in no distress. PLAN: Plan will be to continue her supportive care and await possible katie bed placement. Otherwise, continue work with Physical and Occupational Therapy in hopes of possibly discharge home at some point. Job ID: [id number]
[2019-03-19] MEDS: Senokot S 8.6-50 MG TAB PO SCH ×2 (09:00→20:39)
[2019-03-19] MEDS: Silver Sulfadiazine 1% Cream 50 GM TUBE TP SCH ×2 (09:01→21:49)
[2019-03-19] MEDS: Enoxaparin Sodium 30 MG/0.3 ML SYRINGE SC SCH ×2 (09:09→20:38)
--- NOTE | 2019-03-19 10:28 | RAD ---
EXAM: 3 views of the pelvis HISTORY: Pelvic fracture follow-up COMPARISON: 03/03/2019 FINDINGS: There is a healing fracture of the left inferior pubic ramus. The fracture involving the leyva perior pubic ramus at the acetabulum cannot be appreciated on today's examination. An IUD is seen in the pelvis. IMPRESSION: Healing left inferior pubic ramus fracture
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
[2019-03-20] MEDS: Artificial Tear Sol 15 ML BOT EA EYE SCH ×3 (00:57→11:26)
[2019-03-20] MEDS: traMADol HCl 50 MG TAB PO SCH ×2 (06:16→11:29)
[2019-03-20] MEDS: Ferrous Sulfate 325 MG TAB PO SCH (09:42)
[2019-03-20] MEDS: Ibuprofen 800 MG TAB PO SCH (09:44)
[2019-03-20] MEDS: Ascorbic Acid 500 mg Chewable Tablet PO SCH (09:47)
[2019-03-20] MEDS: Gabapentin 300 MG CAP PO SCH (09:47)
[2019-03-20] MEDS: Acetaminophen 500 MG TAB PO SCH (09:47)
[2019-03-20] MEDS: Enoxaparin Sodium 30 MG/0.3 ML SYRINGE SC SCH (09:48)
[2019-03-20] MEDS: Polyethylene Glycol 3350 17 GM Packet PO SCH (10:04)
[2019-03-20] MEDS: Senokot S 8.6-50 MG TAB PO SCH (10:05)
[2019-03-20 11:10] VITALS: BP 112/72; TEMP 98.9
[2019-03-20] MEDS: Silver Sulfadiazine 1% Cream 50 GM TUBE TP SCH (11:27)
== END 2019-03-20 12:16 | DRG 958 ==
LOC: ERS 18:40 → SURG B 23:03
PROVIDERS: ADMIT Specialist; ATTEND Specialist
PROC: 0PSJ04Z Reposition Left Radius with Internal Fixation Device, Open Approach (ICD-10-PCS; principal; 2019-03-04)
PROC: 0LQ70ZZ Repair Right Hand Tendon, Open Approach (ICD-10-PCS; 2019-03-04)
PROC: 0MBP0ZZ Excision of Left Knee Bursa and Ligament, Open Approach (ICD-10-PCS; 2019-03-04)
PROC: 0MBN0ZZ Excision of Right Knee Bursa and Ligament, Open Approach (ICD-10-PCS; 2019-03-04)
PROC: 0HQGXZZ Repair Left Hand Skin, External Approach (ICD-10-PCS; 2019-03-04)
PROC: 0HQFXZZ Repair Right Hand Skin, External Approach (ICD-10-PCS; 2019-03-04)
PROC: 02HV33Z Insertion of Infusion Device into Superior Vena Cava, Percutaneous Approach (ICD-10-PCS; 2019-03-04)
DX: S32.19XA Other fracture of sacrum, initial encounter for closed fracture (principal); S02.31XA Fracture of orbital floor, right side, initial encounter for closed fracture; S27.321A Contusion of lung, unilateral, initial encounter; S32.402A Unspecified fracture of left acetabulum, initial encounter for closed fracture; S32.592A Other specified fracture of left pubis, initial encounter for closed fracture; S52.602A Unspecified fracture of lower end of left ulna, initial encounter for closed fracture; E83.42 Hypomagnesemia; S61.412A Laceration without foreign body of left hand, initial encounter; S81.011A Laceration without foreign body, right knee, initial encounter; S61.411A Laceration without foreign body of right hand, initial encounter; E87.6 Hypokalemia; V20.5XXA Motorcycle passenger injured in collision with pedestrian or animal in traffic accident, initial encounter; Y93.89 Activity, other specified; Y92.410 Unspecified street and highway as the place of occurrence of the external cause
CPT/HCPCS: 11010; 12013; 29125; 36415; 70450; 70486; 71045; 71260; 72125; 72170; 72190; 74177; 76000; 80048; 80053; 80306; 80307; 82550; 83605; 83735; 84100; 84703; 85025; 85610; 85730; 90471; 90715; 96361; 96365; 96375; 96376; 99152; 99153; C1713; G0390; J0131; J0360; J0670; J0690; J1100; J1650; J1885; J2001; J2250; J2270; J2405; J2704; J3010; J3480; Q9966